=== PATIENT | male | born 1940 | race Caucasian/White ===

== ENCOUNTER 2022-03-26 16:24 | Outpatient (CLI) | payer MEDICARE, BC, SELFPAY | END 2022-03-26 16:25 | disposition home or self-care (01) | LOC: AMB 04-04 12:06 | PROVIDERS: PCP Family Medicine; Visit Provider Family Medicine | DX: R55 Syncope and collapse (principal); R41.82 Altered mental status, unspecified | CPT/HCPCS: A0425; A0427 ==

== ENCOUNTER 2022-03-26 16:59 | Emergency (ER) | payer MEDICARE, BC, SELFPAY ==
[2022-03-26] VITALS (9 sets, daily range): BP systolic 151–186; BP diastolic 68–94; PULSE 60–67; RESP 16; TEMP 36.2; O2SAT 97–100; BMI 26.6
--- NOTE | 2022-03-26 17:06 | CRLHL7_ITS ---
For Patients: As a result of the Century Cures Act, medical imaging exams and procedure reports are released immediately into your electronic medical record. You may view this report before your referring provider. If you have questions, please contact your health care provider. INDICATION: FALL, HIT BACK OF HEAD TECHNIQUE: CT of the head without contrast. Coronal and sagittal reformats. Bone and soft tissue algorithms. COMPARISON: No prior studies available for comparison at this institution. FINDINGS: No acute intracranial hemorrhage or extra-axial collection. No evidence of acute cortical infarction. No mass effect or midline shift. Moderate generalized cerebral/cerebellar parenchymal volume loss. Vascular calcifications within the carotid siphons. Orbital contents are normal. No calvarial fractures. No lytic or sclerotic osseous lesions within the calvarium or skull base. Mild right parietal scalp subgaleal hematoma. Mastoid air cells are clear. Moderate mucosal thickening in the left maxillary sinus. Rightward deviation of the nasal septum. IMPRESSION: 1. No acute intracranial abnormality. 2. Moderate generalized parenchymal volume loss. 3. Mild right parietal scalp subgaleal hematoma. Please note that all CT scans at this facility use dose modulation, iterative reconstruction, and/or weight-based dosing when appropriate to reduce radiation dose to as low as reasonably achievable. Dictated by Arnav Romero MD @ 03/26/2022 5:46:22 PM (Electronically Signed)
--- NOTE | 2022-03-26 17:06 | CRLHL7_ITS ---
For Patients: As a result of the Century Cures Act, medical imaging exams and procedure reports are released immediately into your electronic medical record. You may view this report before your referring provider. If you have questions, please contact your health care provider. Indication: FALL, HIT BACK OF HEAD Technique: Noncontrast axial CT of the cervical spine with coronal and sagittal reformats are provided. Comparison: No prior studies available for comparison at this institution. Findings: There is straightening of normal cervical spine alignment. Grade 1 anterolisthesis at C3-4. The craniocervical junction is unremarkable. Degenerative changes in the and plantar X articulation and atlanto occipital articulation. Prominent anterior osteophytes at C2-3, C3-4, C4-5 and most prominent at C5-6 and C6-7. No aggressive osseous lesions. No prevertebral or paraspinal edema. C1-2: No spinal canal stenosis C2-3: Mild facet arthrosis on the left side. No significant spinal canal stenosis or neural foramen narrowing. C3-4: Grade 1 anterolisthesis. Advanced right facet arthrosis. No significant spinal canal stenosis. Mild right neural foramina narrowing. No left neural foramen narrowing. C4-5: Moderate right facet arthrosis. No significant spinal canal stenosis or neural foramen narrowing. C5-6: Moderate interspace narrowing. No significant spinal canal stenosis or neural foramen narrowing. C6-7: Moderate interspace narrowing. Disc osteophyte complex. No significant spinal canal stenosis. Severe right and moderate to severe left neural foramen narrowing due to uncovertebral joint hypertrophy. C7-T1: No significant spinal canal stenosis or neural foramen narrowing. Impression: 1. No convincing radiographic evidence of acute osseous injury. 2. Scattered degenerative changes of the cervical spine. Please note that all CT scans at this facility use dose modulation, iterative reconstruction, and/or weight-based dosing when appropriate to reduce radiation dose to as low as reasonably achievable. Dictated by Arnav Romero MD @ 03/26/2022 5:52:15 PM (Electronically Signed)
--- NOTE | 2022-03-26 17:24 | ED.GENADULT ---
HPI - General Adult General Time Seen by Provider: 17:24 Date Seen: 03/26/22 Chief complaint: Fall/Minor Trauma Stated complaint: Fall Time Seen by Provider: 03/26/22 17:06 Source: patient Mode of arrival: EMS Limitations: physical limitation History of Present Illness HPI narrative: Patient is a pleasant 82-year-old male was getting ready to go to the [facility], he is on Xarelto, and he apparently fell outside slipped on the ice hit the back of his head where he has an abrasion and had some bleeding. He came into the house. His noted he was dabbing blood on the top of his head and was asking what happened, he did remember what happened. An ambulance was called he was brought to the hospital. He is awake alert, oriented to person place and time. Does not remember the event. Does not have a significant headache or neck pain back pain pelvic pain or upper lower extremity symptoms. But in by trauma team activation with an ambulance given his mechanism injury and clinical presentation, his Nanette coma Scale is 15, he was not C collared and boarded Related Data Home Medications Medication Instructions Recorded Confirmed atorvastatin 10 mg tablet 10 mg PO DAILY 03/26/22 03/26/22 chlorthalidone 25 mg tablet 25 mg PO DAILY 03/26/22 03/26/22 famotidine 40 mg tablet 40 mg PO HS 03/26/22 03/26/22 ranitidine HCl 150 mg tablet 300 mg PO DAILY 03/26/22 03/26/22 rivaroxaban 20 mg tablet (Xarelto) 20 mg PO Q24H 03/26/22 03/26/22 Allergies Allergy/AdvReac Type Severity Reaction Status Date / Time lisinopril Allergy Unknown Verified 03/26/22 18:21 crab legs Allergy Unknown Uncoded 03/26/22 18:21 Review of Systems Status of ROS: Reports: 6 or more systems reviewed and unremarkable except as noted in History and below PFSH PFSH Social History Smoking Status: Former smoker What tobacco products do you use: cigarettes Years smoked: 30 Do you use any of these nicotine containing products: None Second hand tobacco smoke exposure: No How often do you have a drink containing alcohol: never How often do you have six or more drinks on one occasion: Never AUDIT-C Alcohol total score: 0 Non-prescribed substance use: denies use service: No Exam Narrative: Exam Narrative: Objective: Primary survey airway breathing circulation disability no abnormalities Secondary survey vital signs unremarkable HEENT shows a abrasion of the back of his head will cleanse and more carefully inspect after his CT scan of his head neck or done Neck shows no midline tenderness Chest back abdomen upper lower extremities unremarkable to palpation Neurologic is nonfocal upper lower extremities No palpable tenderness is chest or abdomen or pelvis Heart rhythm regular Abdomen soft benign Extremities show good perfusion Skin periphery warm and dry Const: Vital Signs, click to edit/add: Vital Signs - 24 hr 03/26/22 17:11 Temperature 97.1 F L Pulse Rate [Right Pulse Oximeter] 67 Respiratory Rate 16 Blood Pressure [Ri ght Upper Arm] 186/94 H Pulse Oximetry 100 Oxygen Delivery Me thod Room Air Course Vital Signs Vital signs: Initial Vital Signs Temperature 97.1 F L 03/26/22 17:11 Temperature Source Temporal Artery Scan 03/26/22 17:11 Pulse Rate 67 03/26/22 17:11 Respiratory Rate 16 03/26/22 17:11 Blood Pressure 186/94 H 03/26/22 17:11 Blood Pressure Mean 124 03/26/22 17:11 Blood Pressure Position Supine 03/26/22 17:11 Pulse Oximetry 100 03/26/22 17:11 Oxygen Delivery Method 03/26/22 17:11 Vital Signs Temperature 97.1 F L 03/26/22 17:11 Pulse Rate 67 03/26/22 17:11 Respiratory Rate 16 03/26/22 17:11 Blood Pressure 186/94 H 03/26/22 17:11 Pulse Oximetry 100 03/26/22 17:11 Oxygen Delivery Method 03/26/22 17:11 Temperature 97.1 F L 03/26/22 17:11 Pulse Rate 60 03/26/22 18:02 Respiratory Rate 16 03/26/22 17:11 Blood Pressure 161/71 H 03/26/22 18:01 Pulse Oximetry 99 03/26/22 18:02 Oxygen Delivery Method 03/26/22 17:11 Medical Decision Making MDM Narrative Medical decision making narrative: Patient is an 82 white male who is on blood thinner who fell on the back of his head he is amnestic for the event. Will check his wound, check head and neck CT, check labs and an EKG. Will rehydrate with saline. Depending on his finding on CT of head neck further disposition planning. Patient is at risk given intercerebral bleed given his anticoagulant. Review the above and discussed with the patient his family. Addendum: Patient's EKG shows an atrial paced rhythm with prolonged AV conduction incomplete right bundle branch block regular rhythm by my read. Patient had a head and neck CT that showed a subgaleal hematoma but no fracture of his neck or head. Re inspecting his neck he has no midline neck pain. He is moving all extremities, neurologically nonfocal. Denies any new symptoms or back pain. He has no palpable back tenderness. Read inspecting his scalp abrasion over the back of his head he has got a small hematoma but a 50 cent piece size abrasion over his scalp but no palpable step-off no deep wound no laceration. We are checking on his tetanus status and will give him an update if he needs it. Will wrap in cleanse his wound. I think would be reasonable to have him hold his Xarelto for 1 day given his subgaleal hematoma, he has a paced rhythm now and does not appear to be in AFib. He also reports he had some cardiac stents placed after his pacemaker in April of this year. Lab Data Labs: Lab Results 03/26/22 03/26/22 03/26/22 Range/Units 17:07 17:20 17:20 WBC 9.82 (4.50-11.00) K/uL RBC 5.02 (4.30-5.90) m/uL Hgb 15.4 (13.5-17.5) gm/dL Hct 45.1 (37.0-53.0) % MCV 90 (80-100) fL MCH 31 (26-34) pg MCHC 34 (32-36) gm/dL RDW Coeff of Mark 12.9 (11.5-15.5) % Plt Count 155 (140-440) K/uL Neut % (Auto) 80.1 H (42.0-72.0) % Lymph % (Auto) 11.5 L (20-44) % [place] % (Auto) 6.9 (0.0-11.0) % Eos % (Auto) 1.1 (0.0-7.0) % Baso % (Auto) 0.3 (0.0-3.0) % Neut # (Auto) 7.90 H (1.7-7.0) K/uL Lymph # (Auto) 1.10 (0.90-2.90) K/uL [place] # (Auto) 0.70 (0.00-0.90) K/UL Eos # (Auto) 0.11 (0.00-0.50) K/uL Baso # (Auto) 0.03 (0.00-0.30) K/uL Abs Immat Gran (auto) 0.01 (0.00-0.30) K/uL Imm/Tot Granulo (auto) 0.1 % Sodium 139 (135-149) mmol/L Potassium 5.3 H (3.6-5.1) mmol/L Chloride 103 (96-114) mmol/L Carbon Dioxide 28 (20-32) mmol/L BUN 26 (7-30) mg/dL Creatinine 1.0 (0.5-1.5) mg/dL Estimated Creat Clear 54.15 Estimated GFR 75 ml/min Glucose 106 (60-115) mg/dL Calcium 9.7 (8.4-10.6) mg/dL Total Bilirubin 1.7 H (0.1-1.5) mg/dL Direct Bilirubin 0.8 H (0.0-0.5) mg/dL AST 64 H (12-35) U/L ALT 32 (4-50) U/L Alkaline Phosphatase 80 (40-150) U/L Troponin I 0.02 (0.01-0.04) ng/mL C-Reactive Protein < 0.5 L (0.5-1.0) mg/dL Total Protein 8.0 (6.0-8.3) g/dL Albumin 5.0 (3.3-5.0) g/dL SARS-CoV-2 (PCR) Negative SARS-CoV-2 (Negative) Discharge Plan Discharge Clinical Impression: CHI (closed head injury), Fall Patient Disposition: Home w/ Parent or Adult Condition: Stable Additional Instructions: Hold blood thinner x1 day, then restart. Light activity, update regular physician in the next couple of days, would recommend repeat visit in 4-5 days with regular doctor. Tylenol as needed for head discomfort, return if any problems or concerns sooner than his followup appoint with clinic Activity Level: Light activity Discharge Diet: Regular Prescriptions: No Action atorvastatin 10 mg tablet 10 mg PO DAILY Label Comments: TAKE 1 TABLET (10 MG) BY MOUTH ONCE DAILY WITH EVENING MEAL. chlorthalidone 25 mg tablet 25 mg PO DAILY Label Comments: TAKE 1 TABLET BY MOUTH EVERY DAY famotidine 40 mg tablet 40 mg PO HS Label Comments: TAKE 1 TABLET BY MOUTH AT BEDTIME Xarelto 20 mg tablet 20 mg PO Q24H Label Comments: TAKE 1 TABLET (20 MG) BY MOUTH ONCE DAILY WITH EVENING MEAL. DO NOT RESUME UNTIL 10/31/21 ranitidine HCl 150 mg tablet 300 mg PO DAILY Follow Up/Referrals: Camilo Acevedo MD [Primary Care Provider] - Stand Alone Forms: [facility] Info Instructions
[2022-03-26 17:26] LABS: Basophils Absolute Auto 0.03 K/uL (0.00-0.30); Basophils Percent Auto 0.3 % (0.0-3.0); Eosinophils Absolute Auto 0.11 K/uL (0.00-0.50); Eosinophils Percent Auto 1.1 % (0.0-7.0); Hematocrit 45.1 % (37.0-53.0); Hemoglobin* 15.4 gm/dL (13.5-17.5); Immature Granulocytes Abs Auto 0.01 K/uL (0.00-0.30); Immature Granulocytes Pct Auto 0.1 %; Lymphocytes Percent Auto 11.5 % (20-44); Mean Corpuscular HGB Conc 34 gm/dL (32-36); Mean Corpuscular Hemoglobin 31 pg (26-34); Mean Corpuscular Volume 90 fL (80-100); Monocytes Percent Auto 6.9 % (0.0-11.0); Neutrophils Percent Auto 80.1 % (42.0-72.0); Platelet Count* 155 K/uL (140-440); RDW Coefficient of Variation % 12.9 % (11.5-15.5); Red Blood Count 5.02 m/uL (4.30-5.90); White Blood Count* 9.82 K/uL (4.50-11.00)
[2022-03-26 17:28] LABS: Slide Review Reflex No
[2022-03-26] MEDS: 0.9 % SODIUM CHLORIDE 500 ML 500 ML IV (17:30)
[2022-03-26 17:44] LABS: Chloride* 103 mmol/L (96-114); Sodium* 139 mmol/L (135-149)
[2022-03-26 17:48] LABS: Alanine Aminotransferase* 32 U/L (4-50); Alkaline Phosphatase* 80 U/L (40-150); Bilirubin Direct* 0.8 mg/dL (0.0-0.5); Bilirubin Total* 1.7 mg/dL (0.1-1.5); Blood Urea Nitrogen* 26 mg/dL (7-30); Calcium* 9.7 mg/dL (8.4-10.6); Carbon Dioxide* 28 mmol/L (20-32); Est. Creatinine Clearance* 54.15; Estimated Glomerular Filt Rate 75 ml/min; Glucose* 106 mg/dL (60-115)
[2022-03-26 17:49] LABS: Potassium* 5.3 mmol/L (3.6-5.1)
[2022-03-26 17:50] LABS: Aspartate Amino Transferase* 64 U/L (12-35)
[2022-03-26 17:51] LABS: C Reactive Protein* < 0.5 mg/dL (0.5-1.0)
[2022-03-26 17:59] LABS: Troponin I* 0.02 ng/mL (0.01-0.04)
[2022-03-26 18:14] LABS: SARS PCR* Negative SARS-CoV-2 (Negative)
--- NOTE | 2022-03-26 19:11 | ED.NURSE ---
had a hematoma and abrasion approx 5 cm in diameter on then back of his head. did cleanse with saline and dilute h2o2. bacitracin, telfa, kerlix and coban was placed. understands dc instructions. has called his and she will be expecting his return home. was up to br to void prior to dc. was initially sl dizzy upon sitting up initially. dc home with friends.
== END 2022-03-26 18:55 | disposition home or self-care (01) ==
PROVIDERS: Emergency Provider Family Medicine; PCP Family Medicine
DX: S09.90XA Unspecified injury of head, initial encounter (principal); W00.9XXA Unspecified fall due to ice and snow, initial encounter
CPT/HCPCS: 36415; 70450; 72125; 80048; 80076; 84484; 85025; 86140; 87635; 93005; 94761; 99284; 99291; G0390; J7120

== ENCOUNTER 2023-03-02 11:53 | Outpatient (CLI) | payer MEDICARE, BC, SELFPAY ==
--- NOTE | 2023-03-02 13:28 | W.ANESCHARGE ---
Anesthesia Charges Start Date/Time Anesthesia Start Date: 03/02/23 Anesthesia Start Time: 12:30 Stop Date/Time Anesthesia Stop Date: 03/02/23 Anesthesia Stop Time: 12:55
== END 2023-03-02 11:54 | disposition home or self-care (01) ==
LOC: OP CLINIC 11:54
PROVIDERS: PCP Family Medicine; Visit Provider Internal Medicine Gastroenterology
DX: Z12.11 Encounter for screening for malignant neoplasm of colon (principal); K64.8 Other hemorrhoids; Z86.010 Personal history of colon polyps
CPT/HCPCS: 45378; 812

== ENCOUNTER 2023-07-22 10:41 | Emergency (ER) | payer MEDICARE, BC, SELFPAY ==
[2023-07-22 10:57] VITALS: BP 175/85; PULSE 61; RESP 33; TEMP 36.3; O2SAT 100; BMI 26.5
[2023-07-22 11:45] LABS: Basophils Absolute Auto 0.03 K/uL (0.00-0.30); Basophils Percent Auto 0.4 % (0.0-3.0); Eosinophils Absolute Auto 0.13 K/uL (0.00-0.50); Eosinophils Percent Auto 1.6 % (0.0-7.0); Hematocrit 40.9 % (37.0-53.0); Hemoglobin* 13.7 gm/dL (13.5-17.5); Immature Granulocytes Abs Auto 0.01 K/uL (0.00-0.30); Immature Granulocytes Pct Auto 0.1 %; Lymphocytes Percent Auto 14.9 % (20-44); Mean Corpuscular HGB Conc 34 gm/dL (32-36); Mean Corpuscular Hemoglobin 30 pg (26-34); Mean Corpuscular Volume 91 fL (80-100); Monocytes Percent Auto 6.7 % (0.0-11.0); Neutrophils Percent Auto 76.3 % (42.0-72.0); Platelet Count* 170 K/uL (140-440); RDW Coefficient of Variation % 12.8 % (11.5-15.5); Red Blood Count 4.51 m/uL (4.30-5.90); Slide Review Reflex No
[2023-07-22 11:58] LABS: Albumin* 4.2 g/dL (3.3-5.0)
[2023-07-22 11:59] LABS: Chloride* 102 mmol/L (96-114); Potassium* 3.1 mmol/L (3.6-5.1); Sodium* 137 mmol/L (135-149)
[2023-07-22 12:01] LABS: Anion Gap 4 mEq/L (7-15); Aspartate Amino Transferase* 31 U/L (12-35); Carbon Dioxide* 31 mmol/L (20-32); Est. Creatinine Clearance* 58.57; Estimated Glomerular Filt Rate 74 ml/min; Total Protein* 6.8 g/dL (6.0-8.3)
[2023-07-22 12:02] LABS: Alanine Aminotransferase* 25 U/L (4-50); Alkaline Phosphatase* 62 U/L (40-150); Blood Urea Nitrogen* 20 mg/dL (7-30); Calcium* 9.9 mg/dL (8.4-10.6); D Dimer Quantitative* 0.51 ug/ml (0.00-0.50); Glucose* 130 mg/dL (60-115)
--- NOTE | 2023-07-22 12:07 | CT_ITS ---
Patient: ROBINSON HAYES Facility:?[facility] Patient ID:?[id number] Site Patient ID:?[id number]. Site :?[id number] Study:?CT-Chest w/o-07/22/2023 12:31:31 PM Ordering Physician:Dagmar Keen Final Report: INDICATION: Dyspnea after stress test COMPARISON: There are no prior studies for comparison. TECHNIQUE: : CT examination of the chest was performed without contrast. Thin axial sections were obtained from above the apices of the lungs to the lung bases. Please note that all CT scans at this facility use dose modulation, iterative reconstruction, and/or weight-based dosing when appropriate to reduce radiation dose to as low as reasonably achievable. FINDINGS: : HEART and MEDIASTINUM: The heart size is normal. There is no mediastinal or hilar adenopathy or mass. There is no pericardial effusion.There are atherosclerotic vascular calcifications. 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 LUNGS: The lungs show no focal consolidation or mass. The airways appear normal. Trace bibasilar atelectasis posteriorly PLEURAL SPACES: There is no pleural effusion, pneumothorax or pleural based mass. VISUALIZED UPPER ABDOMEN: Cholelithiasis. Hepatic steatosis. Otherwise, the limited visualized upper abdominal structures appear normal. OSSEOUS STRUCTURES: Degenerative changes. Wedging of a vertebral body near the thoracolumbar junction likely chronic. TUBES and LINES: A pacer is noted IMPRESSION: 1. Minimal bibasilar subsegmental atelectasis. Lungs and pleural spaces otherwise unremarkable. Heart size normal. 2. Atherosclerotic vascular calcifications. Pacer normally located. 3. 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 This does not have significant mass effect upon the subjacent trachea. 4. Cholelithiasis. Hepatic steatosis. Chronic appearing osseous findings as above Please note that all CT scans at this facility use dose modulation, iterative reconstruction, and/or weight-based dosing when appropriate to reduce radiation dose to as low as reasonably achievable. Dictated by Thom Winters MD @ 07/22/2023 12:56:48 PM Signed by:?Thom Winters MD @07/22/2023 12:56:48 PM (Electronic Signature)
--- NOTE | 2023-07-22 12:08 | ED_ITS ---
HPI - SOB/Dyspnea General Date Seen: 07/22/23 Chief Complaint: Shortness of Breath/Dyspnea Stated Complaint: weakness Time Seen by Provider: 07/22/23 10:56 Source: patient Mode of arrival: ambulatory Limitations: no limitations History of Present Illness HPI Narrative: Patient is an 83-year-old male presenting to emergency department for shortness of breath and lightheadedness. He has a history of high cholesterol, coronary artery disease. Patient was a stress test done today that he says went fine but then he felt very short of breath afterwards. He states he has been dealing with shortness of breath now for several years and has an extended workup done to try and figure out the cause. States he feels very short of breath right now but this is not the worst he has felt in usually when it occurs he just weights at home until symptoms resolve. He does states he is already starting to feel better. Denies chest pain, headache, vision changes, weakness, numbness. He does states he feels lightheaded at this time. This also is consistent with previous symptoms. Has not noticed any fevers or chills. Says he has been eating and drinking well without issue. Denies diarrhea, constipation, abdominal pain, nausea, vomiting. Related Data Home Medications Medication Instructions Recorded Confirmed atorvastatin 10 mg tablet 10 mg PO DAILY 03/26/22 03/26/22 chlorthalidone 25 mg tablet 25 mg PO DAILY 03/26/22 03/26/22 famotidine 40 mg tablet 40 mg PO HS 03/26/22 03/26/22 ranitidine HCl 150 mg tablet 300 mg PO DAILY 03/26/22 03/26/22 rivaroxaban 20 mg tablet (Xarelto) 20 mg PO Q24H 03/26/22 03/26/22 Allergies Allergy/AdvReac Type Severity Reaction Status Date / Time lisinopril Allergy Unknown Verified 03/26/22 18:21 crab legs Allergy Unknown Uncoded 03/26/22 18:21 Review of Systems Status of ROS: Reports: 10 or more systems reviewed and unremarkable except as noted in History and below [facility] Social History Smoking Status: Former smoker What tobacco products do you use: cigarettes Years smoked: 30 Do you use any of these nicotine containing products: None Second hand tobacco smoke exposure: No How often do you have a drink containing alcohol: never How often do you have six or more drinks on one occasion: Never AUDIT-C Alcohol total score: 0 Non-prescribed substance use: denies use service: No Exam Narrative: Exam Narrative: Const: Well-nourished, Well-developed, in mild distress Eyes: PERRL, no conjunctival injection, and symmetrical lids HENT: Atraumatic external nose and ears. Moist mucous membranes. Neck: Symmetric, trachea midline, No thyromegaly. CVS: RRR, No murmurs or gallops. Peripheral pulses 2+ and equal in all extremities RESP: Tachypneic with increased work of breathing, clear to auscultation bilaterally GI: Nontender/Nondistended, No rebound or guarding. MSK:Extremities w/o deformity, Normal Active ROM Skin: Warm, Dry. No rashes or lesions. Neuro: Normal Muscle tone, No focal neurological deficits. Psych: Awake, Alert, & Oriented x3. Appropriate mood and affect. Const: Vital Signs, click to edit/add: Vital Signs - 24 hr 07/22/23 10:57 07/22/23 12:18 Temperature 97.4 F L Pulse Rate [Pulse Oximeter] 61 60 Respiratory Rate 33 H 16 Blood Pressure [Ri ght Upper Arm] 175/85 H 153/74 H Pulse Oximetry 100 100 Oxygen Delivery Me thod Room Air Course Vital Signs Vital signs: Initial Vital Signs Temperature 97.4 F L 07/22/23 10:57 Temperature Source Temporal Artery Scan 07/22/23 10:57 Pulse Rate 61 07/22/23 10:57 Respiratory Rate 33 H 07/22/23 10:57 Blood Pressure 175/85 H 07/22/23 10:57 Blood Pressure Mean 115 H 07/22/23 10:57 Pulse Oximetry 100 07/22/23 10:57 Oxygen Delivery Method Room Air 07/22/23 10:57 Vital Signs Temperature 97.4 F L 07/22/23 10:57 Pulse Rate 61 07/22/23 10:57 Respiratory Rate 33 H 07/22/23 10:57 Blood Pressure 175/85 H 07/22/23 10:57 Pulse Oximetry 100 07/22/23 10:57 Oxygen Delivery Method Room Air 07/22/23 10:57 Temperature 97.4 F L 07/22/23 10:57 Pulse Rate 60 07/22/23 12:18 Respiratory Rate 16 07/22/23 12:18 Blood Pressure 153/74 H 07/22/23 12:18 Pulse Oximetry 100 07/22/23 12:18 Oxygen Delivery Method Room Air 07/22/23 10:57 Medications Administered Medications: Discontinued Medications Generic Name Dose Route Start Last Admin Trade Name [place] PRN Reason Stop Dose Admin Potassium Chloride 40 meq 07/22/23 12:17 07/22/23 12:36 Potassium Chloride 10 Meq Capsule Er PO 07/22/23 12:18 40 meq ONCE ONE Administration MDM - SOB/Dyspnea MDM Narrative Medical decision making narrative: Patient is an 83-year-old male presenting for shortness of breath. He is tachypneic but is satting 100% on room air. Blood pressure and heart rate are also normal. This sounds like they are symptoms he has had in the past they usually resolve on their own that he is getting extensive workup for. Since he is here in the emergency department I will evaluate him for electrolyte abnormality CHF, COVID/flu/RSV, PE, pneumonia, pneumothorax, ACS. Workup will include CBC, CMP, troponin, BNP, D-dimer, EKG. Will do a CT scan the chest and will wait they D-dimer to return to see if it needs contrast or not. EKG shows no concerning findings. Troponin within normal limits. Age adjusted D-dimer within normal limits. BNP within normal limits. Cbc and CMP showed no concerning findings. His potassium is a little bit low at 3.1 which I did replenish but this is unlikely to be causing his symptoms. He has improved now and feels back to normal. He also does not appear to be breathing nearly as hard as originally. I do not due to CT of the chest non con showing no concerning abnormalities. Of note there is a goiter on his left lobe. I spoke to about if he has ever had thyroid issues and was told to get his thyroid checked at his next appointment in September. I will add on a TSH with reflex T4. This test will take quite a while to do an since he is asymptomatic at this time I believe he is safe for discharge and I will inform him of the results if the l ab work is abnormal. He is agreeable to this plan. Lab Data Labs: Lab Results 03/27/24 03/27/24 03/27/24 Range/Units 11:13 11:28 13:08 WBC 7.90 (4.50-11.00) K/uL RBC 4.51 (4.30-5.90) m/uL Hgb 13.7 (13.5-17.5) gm/dL Hct 40.9 (37.0-53.0) % MCV 91 (80-100) fL MCH 30 (26-34) pg MCHC 34 (32-36) gm/dL RDW Coeff of Mark 12.8 (11.5-15.5) % Plt Count 170 (140-440) K/uL Neut % (Auto) 76.3 H (42.0-72.0) % Lymph % (Auto) 14.9 L (20-44) % [place] % (Auto) 6.7 (0.0-11.0) % Eos % (Auto) 1.6 (0.0-7.0) % Baso % (Auto) 0.4 (0.0-3.0) % Neut # (Auto) 6.00 (1.7-7.0) K/uL Lymph # (Auto) 1.20 (0.90-2.90) K/uL [place] # (Auto) 0.50 (0.00-0.90) K/UL Eos # (Auto) 0.13 (0.00-0.50) K/uL Baso # (Auto) 0.03 (0.00-0.30) K/uL Abs Immat Gran (auto) 0.01 (0.00-0.30) K/uL Imm/Tot Granulo (auto) 0.1 % D-Dimer Quant (PE/DVT) 0.51 H (0.00-0.50) ug/ml Sodium 137 (135-149) mmol/L Potassium 3.1 L (3.6-5.1) mmol/L Chloride 102 (96-114) mmol/L Carbon Dioxide 31 (20-32) mmol/L Anion Gap 4 L (7-15) mEq/L BUN 20 (7-30) mg/dL Creatinine 1.0 (0.5-1.5) mg/dL Estimated Creat Clear 58.57 Estimated GFR 74 ml/min Glucose 130 H (60-115) mg/dL Calcium 9.9 (8.4-10.6) mg/dL Total Bilirubin 1.0 (0.1-1.5) mg/dL AST 31 (12-35) U/L ALT 25 (4-50) U/L Alkaline Phosphatase 62 (40-150) U/L NT-Pro-B Natriuret Pep 71 pg/mL Total Protein 6.8 (6.0-8.3) g/dL Albumin 4.2 (3.3-5.0) g/dL SARS-CoV-2 (PCR) Negative SARS-CoV-2 (Negative) Influenza Type A (PCR) Negative PCR FLU A (Negative) Influenza Type B (PCR) Negative PCR FLU B (Negative) RSV (PCR) Negative PCR RSV (Negative) Lab Acknowledgement Test Added POC Troponin I 0.00 L (0.01-0.04) ng/ml Imaging Data CT scan - chest: Radiologist's impression: 1. Minimal bibasilar subsegmental atelectasis. Lungs and pleural spaces otherwise unremarkable. Heart size normal. 2. Atherosclerotic vascular calcifications. Pacer normally located. 3. 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 This does not have significant mass effect upon the subjacent trachea. 4. Cholelithiasis. Hepatic steatosis. Chronic appearing osseous findings as above Please note that all CT scans at this facility use dose modulation, iterative reconstruction, and/or weight-based dosing when appropriate to reduce radiation dose to as low as reasonably achievable. Dictated by Thom Winters MD @ 07/22/2023 12:56:48 PM ECG Data Attestation: I personally reviewed and interpreted this ECG as follows: Prior ECG tracings: available for review Interpretation: The do not apparent junctional rhythm with an incomplete right bundle-branch block the rate of 59 beats per minute, otherwise normal intervals, normal axis, no ST or T-wave abnormalities. Appears similar to previous EKG on file other than more flattened T-waves in lateral leads Discharge Plan Discharge Clinical Impression: Chronic shortness of breath Patient Disposition: Home, Self-Care Condition: Improved Instructions: Shortness of Breath (ED) Additional Instructions: I will call you with the a thyroid study results if they are abnormal. Return to emergency department for new or worsening symptoms. It is reasonable to follow-up with the providers that are moderate taking your shortness of breath if symptoms return. Prescriptions: No Action atorvastatin 10 mg tablet 10 mg PO DAILY Patient Comments: TAKE 1 TABLET (10 MG) BY MOUTH ONCE DAILY WITH EVENING MEAL. chlorthalidone 25 mg tablet 25 mg PO DAILY Patient Comments: TAKE 1 TABLET BY MOUTH EVERY DAY famotidine 40 mg tablet 40 mg PO HS Patient Comments: TAKE 1 TABLET BY MOUTH AT BEDTIME Xarelto 20 mg tablet 20 mg PO Q24H Patient Comments: TAKE 1 TABLET (20 MG) BY MOUTH ONCE DAILY WITH EVENING MEAL. DO NOT RESUME UNTIL 10/31/21 ranitidine HCl 150 mg tablet 300 mg PO DAILY Follow Up/Referrals: Camilo Acevedo MD [Primary Care Provider] - Stand Alone Forms: [employer] Info Instructions
[2023-07-22 12:13] LABS: NT Pro B Type NatriureticPept* 71 pg/mL
[2023-07-22 12:18] VITALS: BP 153/74; PULSE 60; RESP 16; O2SAT 100
[2023-07-22] MEDS: POTASSIUM CHLORIDE 10 MEQ CAPSULE ER 40 MEQ PO (12:36)
[2023-07-22 12:39] LABS: PCR FLU A Negative PCR FLU A (Negative); PCR FLU B Negative PCR FLU B (Negative); PCR RSV Negative PCR RSV (Negative); SARS PCR* Negative SARS-CoV-2 (Negative)
[2023-07-22 13:51] LABS: TSH With Reflex to FT4* 0.433 uIU/mL (0.270-4.200)
== END 2023-07-22 14:00 | disposition home or self-care (01) ==
PROVIDERS: Emergency Provider Student in an Organized Health Care Education/Training Program; PCP Family Medicine
DX: R06.02 Shortness of breath (principal)
CPT/HCPCS: 36415; 71250; 80053; 83880; 84443; 84484; 85025; 85379; 87631; 93005; 99283; 99284; 99285; A9270

== ENCOUNTER 2023-11-16 10:00 | Outpatient (RCR) | payer MEDICARE, BC, SELFPAY | END 2024-03-15 23:59 | disposition home or self-care (01) | PROVIDERS: PCP Family Medicine; Visit Provider Family Medicine | DX: M17.0 Bilateral primary osteoarthritis of knee (principal); Z51.89 Encounter for other specified aftercare | CPT/HCPCS: 97110; 97162 ==

== ENCOUNTER 2023-11-17 14:23 | Outpatient (CLI) | payer MEDICARE, BC, SELFPAY | END 2023-11-17 14:24 | disposition home or self-care (01) | LOC: AMB 11-21 14:26 | PROVIDERS: PCP Family Medicine; Visit Provider Family Medicine | DX: R53.1 Weakness (principal) | CPT/HCPCS: A0425; A0427 ==

== ENCOUNTER 2023-11-17 15:09 | Emergency (ER) | payer MEDICARE, BC, SELFPAY ==
[2023-11-17 15:11] VITALS: BP 164/64; PULSE 61; RESP 18; TEMP 36.5; O2SAT 97; BMI 26.5
--- NOTE | 2023-11-17 15:31 | CRLHL7_ITS ---
For Patients: As a result of the Cures Act, medical imaging exams and procedure reports are released immediately into your electronic medical record. You may view this report before your referring provider. If you have questions, please contact your health care provider. INDICATION: Cough x2 days. TECHNIQUE: Chest 2 view. COMPARISON: Chest radiograph 04/08/2021. FINDINGS: No focal consolidation, pleural effusion, or pneumothorax. Minimal linear atelectasis or scarring in the lung bases. Normal heart size and pulmonary vascularity. Left chest pacemaker with leads over the right atrium and right ventricle. Degenerative changes of the spine. IMPRESSION: No acute cardiopulmonary findings. Dictated by Nayely Noel MD @ 11/17/2023 5:07:16 PM (Electronically Signed)
--- NOTE | 2023-11-17 15:32 | ED_ITS ---
HPI - General Adult General Chief complaint: Cough Stated complaint: cough Time Seen by Provider: 11/17/23 15:13 History of Present Illness HPI narrative: This 83-year-old male comes in reporting cough and some feeling of lightheadedness. He states that he started to develop a cough yesterday. He does not report any shortness of breath. He states that he measured a temperature at home of 100? F. He arrives here with a temperature at 97.7? F. Related Data Home Medications ?Medication ?Instructions ?Recorded ?Confirmed atorvastatin 10 mg tablet 10 mg PO DAILY 03/26/22 03/26/22 chlorthalidone 25 mg tablet 25 mg PO DAILY 03/26/22 03/26/22 famotidine 40 mg tablet 40 mg PO HS 03/26/22 03/26/22 ranitidine HCl 150 mg tablet 300 mg PO DAILY 03/26/22 03/26/22 rivaroxaban 20 mg tablet (Xarelto) 20 mg PO Q24H 03/26/22 03/26/22 Allergies Allergy/AdvReac Type Severity Reaction Status Date / Time lisinopril Allergy Unknown Verified 03/26/22 18:21 crab legs Allergy Unknown Uncoded 03/26/22 18:21 Review of Systems Status of ROS: Reports: 10 or more systems reviewed and unremarkable except as noted in History and below Narrative: Constitutional: No fevers, no weight gain or loss. Eyes: No discharge. No vision changes. HENT: No congestion, no sore throat, no ear pain. Cardiovascular: No chest pain, no palpitations. Respiratory: No shortness of breath, no wheezes. He reports a cough. Gastrointestinal: No abdominal pain, no vomiting, no diarrhea. Genitourinary: No dysuria, no hematuria. Musculoskeletal: Normal range of motion. Skin: No rashes, no pruritis. Neurological: No weakness, sensory change, speech change. Endo/Heme/Allergies: No bruising or bleeding. No polydipsia. Pysch: no suicidality, no anxiety, no insomnia. All other systems reviewed and are negative. [facility] Social History Smoking Status: Former smoker What tobacco products do you use: cigarettes Years smoked: 30 Smoking quit date/years: >15 years ago Do you use any of these nicotine containing products: None Second hand tobacco smoke exposure: No How often do you have a drink containing alcohol: never How often do you have six or more drinks on one occasion: Never AUDIT-C Alcohol total score: 0 Non-prescribed substance use: denies use service: No Exam Narrative: Exam Narrative: Constitutional: Well-developed, well-nourished, no acute distress. HEENT: Normocephalic, atraumatic. Neck: Normal range of motion. Nontender. Supple. Heart: Regular. No murmurs. Normal rate. Intact distal pulses. Lungs: Clear to auscultation. No chest discomfort. No wheezes, rhonchi, or rales. Abdomen: Normal bowel sounds. Nontender. No rebound tenderness. Genitalia: Deferred. Back: No midline tenderness. Normal range of motion. Extremities: Normal range of motion. No injury. Skin: Intact. No rash. Warm. No erythema or pallor. Neurologic: No altered sensation. No weakness. Alert and oriented. Psychiatric: No suicidality. No anxiety or depression. No insomnia. Nursing notes and vitals signs are reviewed. Const: Vital Signs, click to edit/add: Vital Signs - 24 hr 11/17/23 15:11 Temperature 97.7 F Pulse Rate [Pulse Oximeter] 61 Respiratory Rate 18 Blood Pressure [Ri ght Upper Arm] 164/64 H Pulse Oximetry 97 Oxygen Delivery Me thod Room Air Course Vital Signs Vital signs: Initial Vital Signs Temperature 97.7 F 11/17/23 15:11 Temperature Source Temporal Artery Scan 11/17/23 15:11 Pulse Rate 61 11/17/23 15:11 Respiratory Rate 18 11/17/23 15:11 Blood Pressure 164/64 H 11/17/23 15:11 Blood Pressure Mean 97 11/17/23 15:11 Blood Pressure Position Supine 11/17/23 15:11 Pulse Oximetry 97 11/17/23 15:11 Oxygen Delivery Method Room Air 11/17/23 15:11 Vital Signs Temperature 97.7 F 11/17/23 15:11 Pulse Rate 61 11/17/23 15:11 Respiratory Rate 18 11/17/23 15:11 Blood Pressure 164/64 H 11/17/23 15:11 Pulse Oximetry 97 11/17/23 15:11 Oxygen Delivery Method Room Air 11/17/23 15:11 Temperature 97.7 F 11/17/23 15:11 Pulse Rate 61 11/17/23 15:11 Respiratory Rate 18 11/17/23 15:11 Blood Pressure 164/64 H 11/17/23 15:11 Pulse Oximetry 97 11/17/23 15:11 Oxygen Delivery Method Room Air 11/17/23 15:11 Medical Decision Making MDM Narrative Medical decision making narrative: This patient comes in reporting an occasional cough and feeling ill with occasions of some lightheadedness. He arrives with normal vital signs. Chest x-ray is obtained and shows no acute cardiopulmonary disease by my review. Radiology report is pending. Labs also returned with reassuring findings. His nasal swab however did return positive for COVID. The patient is informed of this diagnosis and I gave reassurance is regarding his vital signs and exam. He did receive an oral dose of dexamethasone. I did describe signs and symptoms that would indicate need for return and re-evaluation. Lab Data Labs: Lab Results 11/17/23 11/17/23 11/17/23 Range/Units 15:32 15:48 Unknown WBC 9.34 (4.50-11.00) K/uL RBC 4.95 (4.30-5.90) m/uL Hgb 14.9 (13.5-17.5) gm/dL Hct 45.0 (37.0-53.0) % MCV 91 (80-100) fL MCH 30 (26-34) pg MCHC 33 (32-36) gm/dL RDW Coeff of Mark 13.3 (11.5-15.5) % Plt Count 147 (140-440) K/uL Neut % (Auto) 85.7 H (42.0-72.0) % Lymph % (Auto) 5.1 L (20-44) % [place] % (Auto) 7.9 (0.0-11.0) % Eos % (Auto) 0.9 (0.0-7.0) % Baso % (Auto) 0.2 (0.0-3.0) % Neut # (Auto) 8.00 H (1.7-7.0) K/uL Lymph # (Auto) 0.50 L (0.90-2.90) K/uL [place] # (Auto) 0.70 (0.00-0.90) K/UL Eos # (Auto) 0.08 (0.00-0.50) K/uL Baso # (Auto) 0.02 (0.00-0.30) K/uL Abs Immat Gran (auto) 0.02 (0.00-0.30) K/uL Imm/Tot Granulo (auto) 0.2 % Sodium 138 (135-149) mmol/L Potassium 3.2 L (3.6-5.1) mmol/L Chloride 101 (96-114) mmol/L SARS-CoV-2 (PCR) POSITIVE SARS-CoV-2 A (Negative) Influenza Type A (PCR) (Negative) Influenza Type B (PCR) (Negative) RSV (PCR) (Negative) POC Troponin I 0.00 L (0.01-0.04) ng/ml 11/17/23 Range/Units Unknown WBC (4.50-11.00) K/uL RBC (4.30-5.90) m/uL Hgb (13.5-17.5) gm/dL Hct (37.0-53.0) % MCV (80-100) fL MCH (26-34) pg MCHC (32-36) gm/dL RDW Coeff of Mark (11.5-15.5) % Plt Count (140-440) K/uL Neut % (Auto) (42.0-72.0) % Lymph % (Auto) (20-44) % [place] % (Auto) (0.0-11.0) % Eos % (Auto) (0.0-7.0) % Baso % (Auto) (0.0-3.0) % Neut # (Auto) (1.7-7.0) K/uL Lymph # (Auto) (0.90-2.90) K/uL [place] # (Auto) (0.00-0.90) K/UL Eos # (Auto) (0.00-0.50) K/uL Baso # (Auto) (0.00-0.30) K/uL Abs Immat Gran (auto) (0.00-0.30) K/uL Imm/Tot Granulo (auto) % Sodium (135-149) mmol/L Potassium (3.6-5.1) mmol/L Chloride (96-114) mmol/L SARS-CoV-2 (PCR) POSITIVE SARS-CoV-2 A (Negative) Influenza Type A (PCR) Negative PCR FLU A (Negative) Influenza Type B (PCR) Negative PCR FLU B (Negative) RSV (PCR) Negative PCR RSV (Negative) POC Troponin I (0.01-0.04) ng/ml ECG Data Attestation: I personally reviewed and interpreted this ECG as follows: Interpretation: Atrial paced rhythm. Rate is 65 beats per minute. There are no specific ST or T-wave abnormalities. Discharge Plan Discharge Clinical Impression: COVID-19 Additional Instructions: Use [id number] medicines as needed and directed. Follow up with MD or return if worsening symptoms occur. Prescriptions: No Action atorvastatin 10 mg tablet 10 mg PO DAILY Patient Comments: TAKE 1 TABLET (10 MG) BY MOUTH ONCE DAILY WITH EVENING MEAL. chlorthalidone 25 mg tablet 25 mg PO DAILY Patient Comments: TAKE 1 TABLET BY MOUTH EVERY DAY famotidine 40 mg tablet 40 mg PO HS Patient Comments: TAKE 1 TABLET BY MOUTH AT BEDTIME Xarelto 20 mg tablet 20 mg PO Q24H Patient Comments: TAKE 1 TABLET (20 MG) BY MOUTH ONCE DAILY WITH EVENING MEAL. DO NOT RESUME UNTIL 10/31/21 ranitidine HCl 150 mg tablet 300 mg PO DAILY Follow Up/Referrals: Camilo Acevedo MD [Primary Care Provider] - Stand Alone Forms: [employer] Info Instructions
[2023-11-17 15:52] LABS: SARS PCR* POSITIVE SARS-CoV-2 (Negative)
[2023-11-17 15:55] LABS: Basophils Absolute Auto 0.02 K/uL (0.00-0.30); Basophils Percent Auto 0.2 % (0.0-3.0); Eosinophils Absolute Auto 0.08 K/uL (0.00-0.50); Eosinophils Percent Auto 0.9 % (0.0-7.0); Hemoglobin* 14.9 gm/dL (13.5-17.5); Immature Granulocytes Abs Auto 0.02 K/uL (0.00-0.30); Immature Granulocytes Pct Auto 0.2 %; Lymphocytes Percent Auto 5.1 % (20-44); Mean Corpuscular HGB Conc 33 gm/dL (32-36); Mean Corpuscular Hemoglobin 30 pg (26-34); Mean Corpuscular Volume 91 fL (80-100); Monocytes Percent Auto 7.9 % (0.0-11.0); Neutrophils Percent Auto 85.7 % (42.0-72.0); Platelet Count* 147 K/uL (140-440); RDW Coefficient of Variation % 13.3 % (11.5-15.5); Red Blood Count 4.95 m/uL (4.30-5.90); White Blood Count* 9.34 K/uL (4.50-11.00)
[2023-11-17 16:00] VITALS: PULSE 60; O2SAT 95
[2023-11-17 16:09] LABS: Slide Review Reflex No
[2023-11-17 16:30] VITALS: PULSE 60; O2SAT 94
[2023-11-17 16:31] LABS: PCR FLU A Negative PCR FLU A (Negative); PCR FLU B Negative PCR FLU B (Negative); PCR RSV Negative PCR RSV (Negative); SARS PCR* POSITIVE SARS-CoV-2 (Negative)
[2023-11-17 16:32] VITALS: BP 142/68; PULSE 60; O2SAT 95
[2023-11-17 16:35] LABS: Chloride* 101 mmol/L (96-114); Potassium* 3.2 mmol/L (3.6-5.1); Sodium* 138 mmol/L (135-149)
[2023-11-17 16:38] LABS: Anion Gap 7 mEq/L (7-15); Carbon Dioxide* 30 mmol/L (20-32); Creatinine* 1.1 mg/dL (0.5-1.5); Est. Creatinine Clearance* 53.24; Estimated Glomerular Filt Rate 66 ml/min
[2023-11-17 16:39] LABS: Blood Urea Nitrogen* 21 mg/dL (7-30); Calcium* 9.5 mg/dL (8.4-10.6); Glucose* 145 mg/dL (60-115)
[2023-11-17 17:00] VITALS: PULSE 66; O2SAT 96
[2023-11-17] MEDS: dexAMETHasone 10 MG/ML inj PO (17:00)
[2023-11-17 17:01] VITALS: BP 160/71; PULSE 66; O2SAT 94
--- NOTE | 2023-11-18 20:01 | ED.NURSE ---
Pt called inquiring about what medication he had received in the ER during his visit on 11/16. Reviewed pt's MAR and informed him the medication in his MAR was Dexamethasone. Pt also reported he was feeling better today.
== END 2023-11-17 17:30 | disposition home or self-care (01) ==
PROVIDERS: Emergency Provider Emergency Medicine Emergency Medical Services; PCP Family Medicine
DX: U07.1 COVID-19 (principal)
CPT/HCPCS: 36415; 71046; 80048; 84484; 85025; 87631; 87635; 93005; 99284; J1100